=== PATIENT | female | born 1950 | race Caucasian/White ===

== ENCOUNTER 2024-05-15 13:24 | Outpatient (OUT) | payer MEDICARE, OTHER, SELFPAY ==
--- NOTE | 2024-05-14 09:33 | VEINCLINIC_ITS ---
Vital Signs 05/15/24 13:43 Height 5 ft 4 in Weight 64.41 kg BMI 24.4 BP 114/71 BP Location Left Brachial BP Position Sitting BP Cuff Size Adult BP Source Automatic Cuff Respiration 16 Pulse 77 Pulse Source Monitor Pulse Oximetry (%) 100 Oxygen Delivery Method Room Air Varicose Veins Patient is a 73 year old female in this day with c/o bilateral leg edema, achiness, and heaviness. 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 Patient has worn bilateral leg knee high compression stockings for 4months with some relief. Patient states that she noted increase swelling most notably to left leg since February. Patient has no history of varicose vein treatments, nor blood clots. Patient does have family history of varicose vein disease. Richmond Christensen MD personally performed the services described in this documentation, as scribed by James Peguero RN in my presence and it is both accurate and complete. James Christensen RN, am scribing for, and in the presence of, Dr. Richmond Palacios and in the presence of the patient. . thigh: bilateral (symptoms left > right leg), knee: bilateral, calf: bilateral, ankle: bilateral and burleson: bilateral aching, cramping and dull 3 >20 years Worsened in recent months: Yes standing compression stockings, weight loss and exercise Reports muscle spasms of leg, fatigue, heaviness, limb pain and edema History of lower extremity trauma: No Superficial thrombophlebitis: No Family history of varicose veins: yes Has patient had previous lower extremity venous surgery: No Does patient have a history of : yes Does patient intend to have future pregnancies: no Has patient had lower extremity venous scan with relux testing: No Support hose used: Yes Problems walking or doing physical activity: Yes How does it affect you: patient often has to rest and elevate legs Do you walk much: Yes Do you stand much: Yes Review of Systems ROS Narrative Richmond Christensen MD personally performed the services described in this doc umentation, as scribed by James Peguero RN in my presence and it is both accurate and complete. James Christensen RN, am scribing for, and in the presence of, Dr. Richmond Palacios and in the presence of the patient. Status of ROS 10 or more systems reviewed and unremark able except as noted in history and below Cardiovascular Reports: edema Neurological Reports: weakness in extremities PFSH [facility] Medical History (Updated 05/15/24 @ 13:59 by James Peguero) Plantar fascia syndrome ?M72.2 - Plantar fascial fibromatosis (ICD-10) Pain due to varicose veins of both lower extremities ?I83.813 - Varicose veins of bilateral lower extremities with pain (ICD-10) Surgical History (Updated 05/15/24 @ 13:59 by James Peguero) H/O: hysterectomy ?Z90.710 - Acquired absence of both cervix and uterus (ICD-10) H/O skin graft ?Z94.5 - Skin transplant status (ICD-10) Family History (Updated 05/15/24 @ 14:01 by James Peguero) Mother Bipolar 1 disorder Other Family history of CHF (congestive heart failure) Family history of cancer Family history of diabetes mellitus Family history of hypertension Family history of myocardial infarction Pain due to varicose veins of both lower extremities Social History (Updated 05/15/24 @ 14:01 by James Peguero) Within the past year, how often did you have a drink containing alcohol: never Score interpretation: A score less than 3 is consistent with normal alcohol consumption. Smoking status: Never smoker Non-prescribed substance use: denies use Meds Home Medications and Allergies Allergies Allergy/AdvReac Type Severity Reaction Status Date / Time No Known Drug Allergies Allergy Verified 05/15/24 14:02 Exam Narrative Exam Narrative: Richmond Christensen MD personally performed the services described in this documentation, as scribed by James Peguero RN in my presence and it is both accurate and complete. James Christensen RN, am scribing for, and in the presence of, Dr. Richmond Palacios and in the presence of the patient. Constitutional Documenting provider has reviewed patient's vital signs: yes Common normals: oriented x3 Nutritional appearance: overweight Lymph Lymphatic: no lymphedema noted Cardio Peripheral pulses: posterior tibial pulses present and dorsalis pedis pulses present Extremity Common normals: normal capillary refill General: calf tenderness and edema Right lower extremity: lower leg Right lower leg: inspection and palpation Left lower extremity: lower leg Left lower leg: inspection and palpation Neuro Common normals: oriented x3 Results Additional Findings Additional findings: Bilateral leg reflux u/s reveals bilateral leg great saphenous insufficiency with associated dilatation along with bilateral leg branch saphenous truncal varicosities. Richmond Christensen MD personally performed the services described in this documentation, as scribed by James Peguero RN in my presence and it is both accurate and complete. Jamse Christensen RN, am scribing for, and in the presence of, Dr. Richmond Palacios and in the presence of the patient. Assessment and Plan Assessment and Plan (1) Pain due to varicose veins of both lower extremities: Plan Patient to continue to use of bilateral leg compression stockings, exercise, rest, and elevation. Patient to return for EVLT of left GSV followed by right GSV followed by microfo am chemical ablation bilateral leg branch saphenous varicosities, and lastly, bilateral leg sclerotherapy pre-hemorrhagic reticular spider veins. Richmond Christensen MD personally performed the services described in this documentation, as scribed by James Peguero RN in my presence and it is both accurate and complete. James Christensen RN, am scribing for, and in the presence of, Dr. Richmond Palacios and in the presence of the patient.
--- NOTE | 2024-05-14 09:37 | W.VEIN ---
Discharge Plan Discharge Disposition: Home, Self-Care Outpatient Diagnostics: VC Endovenous Ablation 1VeinLT (Routine) Timeframe: 2 Weeks Facility: [facility] - Location: [facility]in Center Ordered By: Richmond Palacios Plan of Treatment: EVLT of left GSV Patient Instructions: Endovenous Ablation (GEN) Print Language: Khmer Discharge Date/Time: 05/15/24 15:17
--- NOTE | 2024-05-15 13:37 | VEIN_ITS ---
Patient Name: DARIEL YADAV MR#: [id number] : 1950 Exam Date: 05/15/2024 Ordering Doctor: DR ROCCO LOMELI M.D. RADIOLOGY REPORT PROCEDURE: VC EXT VENOUS REFLUX DARWIN LMTD COMPARISON: None. INDICATIONS: I83.813 Bilateral painful varicose veins TECHNIQUE: Duplex imaging of the lower extremity to assess the deep and superficial venous system for the presence of deep or superficial venous incompetence and to document the location and severity of disease. The study includes evaluation of the great saphenous vein (GSV), anterior accessory saphenous vein (AASV) and small saphenous vein (SSV). Patient scanned in reverse Trendelenburg and standing. FINDINGS: RIGHT LOWER EXTREMITY: Saphenofemoral Junction Reflux: Yes 8.2mm 1.9 sec GSV: Diam (mm) Reflux/ Time (sec) Proximal Thigh 5.9 Yes 2.2 Mid Thigh 4.9 Yes 1.7 Distal Thigh 2.8 No Prox Calf 2.7 No Mid Calf 2.4 Yes 0.8 Saphenopopliteal Junction Reflux: 3.7mm Yes 1.1 SSV: Proximal Calf 3.6 No Mid Calf 2.8 AASV: Proximal Thigh 3.5 No Mid Thigh 1.8 No Distal Thigh Thrombi: No acute or chronic thrombus visualized Compressibility: Normal Flow: Normal Preforator: Mid/med calf 3.6mm with 0s reflux. Tech Note: Incompetent GSV. Patent varicose vein prox/med calf 3.7mm with 2.7s reflux. Patent varicose vein medial knee 3.9mm with 3.1s reflux. Patent mid/med thigh 3.6mm with 1.4s reflux. LEFT LOWER EXTREMITY: Saphenofemoral Junction Reflux: Yes 6.2 mm 1.6 sec GSV: Diam (mm) Reflux/Time (sec) Proximal Thigh 5.7 Yes 2.2 Mid Thigh 4.9 Yes 1.8 Distal Thigh 5.0 Yes 0.8 Prox Calf 2.7 Yes 0.7 Mid Calf 2.4 Saphenopopliteal Junction Relux: 3.4 mm No SSV: Proximal Calf 1.9 Yes 0.5 Mid Calf 1.9 No AASV: Proximal Thigh 4.0 No Mid Thigh Distal Thigh Thrombi: No acute or chronic thrombus visualized Compressibility: Normal Flow: Normal Event Security Officer: Dist/med calf 3.2mm with 0s reflux. Tech Note: Incompetent GSV. Patent varicose vein prox/posterior 3.7mm with 0.9s reflux. Patent varicose vein mid/med calf 4.2mm with 2.9s reflux. Patent varicose vein dist/med thigh 3.0mm with 1.5s reflux. CONCLUSION: 1. Incompetent and abnormally dilated right and left great saphenous veins with associated branch saphenous varicosities. 2. Dictated by: Richmond Palacios M.D. on 05/15/2024 at 15:01 Approved by: Richmond Palacios M.D. on 05/15/2024 at 16:09
--- NOTE | 2024-05-15 13:37 | VEIN_ITS ---
Patient Name: DARIEL YADAV MR#: [id number] : 1950 Exam Date: 05/15/2024 Ordering Doctor: DR ROCCO LOMELI M.D. RADIOLOGY REPORT PROCEDURE: VC FACILITY EST [facility] - OFFICE VISIT INITIAL COMPARISON: None. PROGRESS NOTES: [age] year old female who presents with a 20 year history of dilated bulging veins, leg cramping, aching, increasing swelling. The patient's left leg symptoms are worse than the right. There has been a progression of symptoms over time. This increases with prolonged standing. The patient describes an improvement with rest and elevation. The patient denies any signs and symptoms to suggest arterial ischemia. The patient describes a family history of cardiac disease, hypertension, diabetes, cancer, varicose veins. The patient has drinking and smoking history of : None. Patient has a past medical history significant for : None pertinent. The patient denies a history of deep venous thrombus or pulmonary embolus. See separate history and physical for medication list. No prior treatment for varicose or spider veins. Current use of compression stockings. After review of nurse notes, history and physical exam I discussed at length the pathophysiology of venous hypertension and possible treatments, therapies and strategies available. We discussed at length the importance of elevating the lower extremities above the level of the heart, increased physical activity and compression stocking use. Ultrasound venous reflux study performed today was discussed at length with the patient. The report demonstrates incompetent and abnormally dilated right and left great saphenous veins with associated branch saphenous varicosities.. PHYSICAL EXAM: The right leg demonstrates several varicosities, numerous large reticular and spider veins, no ulceration, mild edema, no skin discoloration. The left leg demonstrates several varicosities, numerous large reticular and spider veins, no ulceration, moderate edema, no skin discoloration. Both thighs, legs and feet were symmetrically warm to the touch. Good posterior tibial and dorsalis pedis pulses were present bilaterally. VEIN/VC Facility EST Comprehensive IMPRESSION: 1. Bilateral lower extremity venous insufficiency 2. Bilateral lower extremity varicose veins 3. Left greater than right lower extremity subcutaneous edema 4. No flow significant arterial disease 5. CEAP: C3, EC, , [place] PLAN: 1. Continued use of compression stockings 2. Elevated legs and increased physical activity symptomatic relief 3. Endovenous laser ablation of left great saphenous and right great saphenous veins. 4. Microfoam chemical ablation of bilateral lower extremity incompetent branch saphenous varicosities. 5. Sclerotherapy of large reticular and spider veins within both lower extremities. Nurse notes, history and physical were reviewed and confirmed, see attached forms. The nurse was present throughout the physical exam and consultation Dictated by: Richmond Palacios M.D. on 05/15/2024 at 16:09 Approved by: Richmond Palacios M.D. on 05/15/2024 at 16:15
[2024-05-15 13:43] VITALS: BP 114/71; PULSE 77; O2SAT 100; BMI 24.4
== END 2024-05-15 15:17 | disposition home or self-care (01) ==
LOC: VC 13:24
PROVIDERS: PCP Radiology Diagnostic Radiology; Visit Provider Radiology Diagnostic Radiology
DX: I83.813 Varicose veins of bilateral lower extremities with pain (principal)
CPT/HCPCS: 93970; G0463

== ENCOUNTER 2024-05-25 10:14 | Outpatient (OUT) | payer MEDICARE, OTHER, SELFPAY ==
--- NOTE | 2024-05-24 09:35 | V.VEINS.HP ---
Vital Signs 05/25/24 10:24 BP 116/60 BP Location Left Brachial BP Position Sitting BP Cuff Size Adult BP Source Manual Cuff Respiration 16 Pulse 70 Pulse Source Monitor Pulse Oximetry (%) 98 Oxygen Delivery Method Room Air Varicose Veins Patient in this day for EVLT of Mohinder Christensen MD personally performed the services described in this documentation, as scribed by James Peguero RN in my presence and it is both accurate and complete. IJames RN, am scribing for, and in the presence of, Dr. Mohinder Velasco and in the presence of the patient. . thigh: bilateral (symptoms left > right leg), knee: bilateral, calf: bilateral, ankle: bilateral and burleson: bilateral aching, cramping and dull 3 >20 years Worsened in recent months: Yes standing compression stockings, weight loss and exercise Reports muscle spasms of leg, fatigue, heaviness, limb pain and edema History of lower extremity trauma: No Superficial thrombophlebitis: No Family history of varicose veins: yes Has patient had previous lower extremity venous surgery: No Does patient have a history of : yes Does patient intend to have future pregnancies: no Has patient had lower extremity venous scan with relux testing: No Support hose used: Yes Problems walking or doing physical activity: Yes How does it affect you: patient often has to rest and elevate legs Do you walk much: Yes Do you stand much: Yes Review of Systems ROS Narrative Mohinder Christensen MD personally performed the services described in this documentation, as scribed by James Peguero RN in my presence and it is both accurate and complete. IJames RN, am scribing for, and in the presence of, Dr. Mohinder Velasco and in the presence of the patient. Status of ROS 10 or more systems reviewed and unremarkable except as noted in history and below Cardiovascular Reports: edema Neurological Reports: weakness in extremities [facility] Medical History (Updated 05/15/24 @ 13:59 by James Peguero) Plantar fascia syndrome ?M72.2 - Plantar fascial fibromatosis (ICD-10) Pain due to varicose veins of both lower extremities ?I83.813 - Varicose veins of bilateral lower extremities with pain (ICD-10) Surgical History (Updated 05/25/24 @ 13:24 by James Peguero) Status post laser ablation of incompetent vein ?Z98.890 - Other specified postprocedural states (ICD-10) H/O: hysterectomy ?Z90.710 - Acquired absence of both cervix and uterus (ICD-10) H/O skin graft ?Z94.5 - Skin transplant status (ICD-10) Family History (Updated 05/15/24 @ 14:01 by James Peguero) Mother Bipolar 1 disorder Other Family history of CHF (congestive heart failure) Family history of cancer Family history of diabetes mellitus Family history of hypertension Family history of myocardial infarction Pain due to varicose veins of both lower extremities Social History (Updated 05/15/24 @ 14:01 by James Peguero) Within the past year, how often did you have a drink containing alcohol: never Score interpretation: A score less than 3 is consistent with normal alcohol consumption. Smoking status: Never smoker Non-prescribed substance use: denies use Meds Home Medications and Allergies Allergies Allergy/AdvReac Type Severity Reaction Status Date / Time No Known Drug Allergies Allergy Verified 05/15/24 14:02 Exam Narrative Exam Narrative: Mohinder Christensen MD personally performed the services described in this documentation, as scribed by James Peguero RN in my presence and it is both accurate and complete. James Christensen RN, am scribing for, and in the presence of, Dr. Mohinder Velasco and in the presence of the patient. Constitutional Documenting provider has reviewed patient's vital signs: yes Common normals: oriented x3 Nutritional appearance: overweight Lymph Lymphatic: no lymphedema noted Cardio Peripheral pulses: posterior tibial pulses present and dorsalis pedis pulses present Extremity Common normals: normal capillary refill General: calf tenderness and edema Right lower extremity: lower leg Right lower leg: inspection and palpation Left lower extremity: lower leg Left lower leg: inspection and palpation Neuro Common normals: oriented x3 Assessment and Plan Assessment and Plan (1) Pain due to varicose veins of both lower extremities: Plan f/u examination with physician along with left leg limited u/s Mohinder Christensen MD personally performed the services described in this documentation, as scribed by James Peguero RN in my presence and it is both accurate and complete. James Christensen RN, am scribing for, and in the presence of, Dr. Mohinder Velasco and in the presence of the patient. Procedures Procedure Instructions Procedures Plan of care: Risks and benefits of the procedure were discussed at length and informed written consent was obtained.? Time-out completed for verification of correct patient, procedure and site.? Staff present during time-out: James Peguero RN,? Mohinder Velasco MD, Michelle Jeter [facility] Time Out Time__1119 Patient prepped and procedure performed in usual sterile fashion. Risk of injury related to use of Diode laser and/or laser devices? __CR___ ? Serial number of laser used :? [id number] Control panel self test performed, electrical cords in good condition, floor is dry, basin of water available, fire extinguisher in close proximity_CR__ Polycarbonate goggles available and Laser warning signs outside of doors___CR__ Eye protection provided to patient and staff in room_CR___ Use of laser retardant drapes and dull blackened instruments as directed__CR___ Use of nonflammable prep solutions and use of saline soaked sponges to protect tissues as indicated _CR___ Length __47 cm Laser operated by __Dr. Velasco Physician verbal confirmation laser locked in place__CR__ Laser start time (date and time) __05/25/2024@_1132 Laser stop time(date and time) __05/25/2024@_1137 He _8.0___ Average laser use __2264 Joules Average laser use___283 seconds Pulse continuous ___CR_? Pulse intermittent ___ Amount of Tumescent used _325cc Evaluated patient for signs and symptoms of electrical injury __CR___ ? Skin clear at insertion site __CR___ Patient tolerated procedure well.? Left leg Coban dressing applied to access site.? Applied Left thigh high leg compression stocking. Will return on 06/01/2024 for Left leg limited venous ultrasound and exam. I, Mohinder Velasco MD personally performed the services described in this documentation, as scribed by James Peguero RN in my presence and it is both accurate and complete. I, James Peguero RN, am scribing for, and in the presence of, Dr. Mohinder eVlasco and in the presence of the patient.
--- NOTE | 2024-05-24 09:38 | P.DS_ITS ---
Discharge Plan Discharge Disposition: Home, Self-Care Outpatient Diagnostics: VC Facility EST LMTD (Routine) Timeframe: 2 Weeks Facility: [facility] - Location: Vein Center Ordered By: Mohinder Velasco VC EXT Venous LT Limited (Routine) Timeframe: 2 Weeks Facility: [facility] - Location: Vein Center Ordered By: Mohinder Velasco Follow Up Appointments: 06/01/2024 Plan of Treatment: f/u examination with physician along with left leg limited u/s Patient Instructions: Endovenous Ablation (DC) Print Language: Lebanese Discharge Date/Time: 05/25/24 11:33
--- NOTE | 2024-05-25 10:15 | VEIN_ITS ---
[address] [address] Patient Name: DARIEL YADAV MRN: [id number] date: 1950 Sex: F Assigned Patient Location: Current Patient Location: Accession/Order Number: [id number] Exam Date: 05/25/2024 10:23 Report Date: 05/25/2024 12:34 At the request of: WOOD VALIENTE Procedure: VC Endovenous Ablation 1VeinLT EXAMINATION: VC Endovenous Ablation 1VeinLT HISTORY: I83.813 - Varicose veins of bilateral lower extremities w... COMPARISON: No relevant comparison available. TECHNIQUE: The risks and benefits of the procedure had been previously discussed, and were rediscussed at length. Informed written consent was obtained. Michelle Day and James Peguero assisted. Time out procedure was performed. The left lower extremity was prepared and draped in the usual sterile fashion to allow knee flexion in the sterile field. Duplex ultrasound probe was draped in a sterile cover, sterile transmission gel was used. Venous mapping was performed with the areas of dilation and large tributaries marked. The total length was 47 cm from the entry lower calf to 3 cm below the saphenofemoral junction. The diameter of the greater saphenous vein ranged from 5-6 mm. A 30 gauge needle and 1% buffered lidocaine was used to anesthetize the entry site. A 4 mm incision was made with a scalpel and the saphenous vein was entered percutaneously under direct ultrasound guidance with a micropuncture set, a single stick was successful in gaining access. A micro-guide wire was inserted and the needle removed. A micro-set including a dilator was inserted over the microwire and the needle and dilator were removed. A 0.018 guide wire was inserted through the micro-set and threaded through the saphenous vein to the saphenofemoral junction. The dilator was removed and an introducer sheath was inserted over the wire until the end of the sheath entered the saphenofemoral junction. The dilator and wire were removed and the 600 micron fiber was introduced and placed and positioned so that it extended beyond the sheath and was 3 cm peripheral to the saphenofemoral femoral junction. Final position of the fiber was determined by ultrasound guidance and duplex imaging. Tumescent anesthetic was delivered by ultrasound guidance. 325 cc of fluid was delivered along the entire course of the saphenous vein. The solution consisted of 1000 cc of normal saline with 40 mL of 1% lidocaine and 20 mL of sodium bicarbonate. A final positioning check was made. The energy source was turned on by means of the foot pedal and the fiber and sheath were withdrawn. The total number of Joules delivered was 2264. The laser was active for 283seconds under continuous pulse, average laser use of 8 J. Laser start time 11:32 AM 05/25/2024 . Laser stop time 11:37 AM 05/25/2024 . A duplex ultrasound revealed compressibility and flow at the saphenofemoral junction immediately after the procedure. Hemostasis at the access site was achieved. The skin incision of the saphenous vein was closed with a 4 x 4. A compression stocking was applied. Postop instructions were given. A follow up appointment was recommended and scheduled. The patient tolerated the procedure well and was discharged in good condition . VEIN/VC Endovenous Ablation 1VeinLT IMPRESSION: Technically successful endovenous laser ablation of the left great saphenous vein Electronically authenticated by: ROCCO LOMELI Date: 05/25/2024 12:34
[2024-05-25] MEDS: LIDOCAINE HCL 1% 100 MG/10 ML MDV INJ (10:16)
[2024-05-25] MEDS: 0.9 % SODIUM CHLORIDE 500 ML, LIDOCAINE HCL 20 ML, SODIUM BICARBONATE 10 MEQ INJ (10:17)
--- OUTSIDE RECORDS SUMMARY | 2024-05-25 10:17 | XMS_ITS | CCD ---
Author Organization [facility] Informat ion Partnership [facility] Care Team Providers Care Pediatric Clinical Nurse Specialist Name Role Phone Ady Troy Monet Primary Care Provider Schaeffer IMPORT DISPATCHER - STOCK SHIPPER, Krystin Zohreh Primary Care Pr ovider Schaeffer IMPORT DISPATCHER - STOCK SHIPPER, Krystin Zohreh Primary Care Pr ovider Schaeffer IMPORT DISPATCHER - STOCK SHIPPER, Krystin Zohreh Primary Care Pr ovider Briana RAMIREZ, Ty Skelton Primary Care Unavaila alexandra Broussard MD, Rio Cm Attending Unavailable Thierno RAMIREZ, Shree Moise Attending Unavailable Thierno RAMIREZ, Shree Moise Primary Care Unavailable Schaeffer IMPORT DISPATCHER - STOCK SHIPPER, Krystin Zohreh Primary Care Pr ovider JOCELYN SARAH Referring Unavailable SCHAEFFER, KRYSTIN ZOHREH Primary Care Unavailabl e JOCELYN SARAH Referring Unavailable SCHAEFFER, KRYSTIN ZOHREH Primary Care Unavailabl e SCHAEFFER, KRYSTIN ZOHREH Referring Unavailabl e SCHAEFFER, KRYSTIN ZOHREH Primary Care Unavailabl e SCHAEFFER, KRYSTIN ZOHREH Primary Care Unavailabl QAMAR Paul Attending Unavailable HANNAH KRYSTIN ZOHREH Referring Unavailabl e SCHAEFFER, KRYSTIN ZOHREH Primary Care Unavailabl e SCAHEFFER, KRYSTIN ZOHREH Referring Unavailabl e SCHAEFFER, KRYSTIN ZOHREH Primary Care Unavailabl e SCHAEFFER, KRYSTIN ZOHREH Referring Unavailabl e SCHAEFFER, KRYSTIN ZOHREH Primary Care Unavailabl e SCHAEFFER, KRYSTIN ZOHREH Referring Unavailabl e SCHAEFFER, KRYSTIN ZOHREH Primary Care Unavailabl e JOCELYN SARAH Referring Unavailable SCHAEFFER, KRYSTIN ZOHREH Primary Care Unavailabl e Allergies Allergy Classification Reported Allergen(s) Allergy Type Date of Onset Reaction(s) Facility (1 source) No Known Medication Allergies; Translations: [No Known Medication Allergies] Propensity to adverse reactions to drug (disorder) [facility] Repository Medications Current Medications Medication Drug Class(es) Dates Sig (Normalized) Sig (Original) aspirin 81 mg oral tablet (10 sources) Platelet Aggregation Inhibitor, Nonsteroidal Anti-inflammatory Drug take 1 tablet by mouth once daily aspirin 81 MG tablet Take 1 tablet by mouth daily Active Charcoal Activated (CHARCOCAPS PO) (2 sources) Charcoal Activat ed (CHARCOCAPS PO) Take by mouth Active Charcoal Activat ed (CHARCOCAPS PO) Take by mouth 0 Active cholecalciferol 0.05 mg oral capsule (10 sources) Vitamin D Cholecalciferol (VITAMIN D3) 2000 UNITS CAPS Take 1,000 Units by mouth daily. Active Chondroitin Sulfates / Glucosamine (4 sources) Glucosamine-Jere droitin (GLUCOSAMINE CHONDR COMPLEX PO) Take by mouth. 0 Active fluticasone propionate 0.05 mg/actuat metered dose nasal spray (3 sources) Corticosteroid Start: 10-12-19 23 take 1 spray(s) nasal route in the morning fluticasone (FLONASE) 50 MCG/ACT nasal spray 1 spray by Each Nostril route in the morning and 1 spray in the evening. 32 g 1 10/11/2022 Active Magnesium (5 sources) take 1 tablet by mouth once daily magnesium (MAGNESIUM-OXIDE) 250 MG TABS tablet Take 1 tablet by mouth daily Active take 1 tablet by mouth once tami y magnesium (MAGNESIUM-OXIDE) 250 MG TABS tablet Take 1 tablet by mouth daily 0 Active Multiple Vitamins-Minerals ( EYE VITAMINS PO) (4 sources) Multiple Vitamin s-Minerals (EYE VITAMINS PO) Take by mouth 0 Active Multiple Vitamins-Minerals ( ICAPS MV PO) (5 sources) Multiple Vitamin s-Minerals (ICAPS MV PO) Take by mouth. 0 Active Multiple Vitamins-Minerals ( PRESERVISION AREDS 2+MULTI VIT PO) (5 sources) Multiple Vitamin s-Minerals (PRESERVISION AREDS 2+MULTI VIT PO) Take by mouth Active Multiple Vitamin s-Minerals (PRESERVISION AREDS 2+MULTI VIT PO) Take by mouth 0 Active nitrofurantoin, macrocrystals 25 mg / nitrofurantoin, monohydrate 75 mg oral capsule (2 sources) Nitrofuran Antibacterial Start: 03-24-2024 End: 03-29-2024 take 1 capsule by mouth twice daily nitrofurantoin, macrocrystal-monohydrate, (MACROBID) 100 MG capsule Take 1 capsule by mouth 2 times daily for 5 days 10 capsule 03/24/2024 03/29/2024 Active Start: 01-06-2023 End: 01-16-2023 take 1 capsule by mouth twice daily nitrofurantoin, macrocrystal-monohydrate , (MACROBID) 100 MG capsule Take 1 capsule by mouth 2 times daily for 10 days 20 capsule 0 01/06/2023 01/16/2023 Active omeprazole 20 mg delayed release oral capsule (1 source) Proton Pump Inhibitor Start: 12-16-2023 take 1 capsule by mouth in the morning omeprazole (PRILOSEC) 20 MG delayed release capsule Indications: Bacterial infection due to Helicobacter pylori Take 1 capsule by mouth in the morning and 1 capsule in the evening. Do all this for 14 days. 28 capsule 12/16/2023 Active phenazopyridine hydrochloride 100 mg oral tablet (2 sources) Start: 03-24-2024 End: 03-26-2024 take 1 tablet by mouth three times daily as needed for pain phenazopyridine (PYRIDIUM) 100 MG tablet Take 1 tablet by mouth 3 times daily as needed for Pain 6 tablet 03/24/2024 03/26/2024 Active Start: 01-06-2023 End: 01-11-2023 take 1 tablet by mouth three times daily as needed for pain phenazopyridine (PYRIDIUM) 100 MG tablet Indications: Burning with urination Take 1 tablet by mouth 3 times daily as needed for Pain 15 tablet 0 01/06/2023 01/11/2023 Active predniSONE 10 mg oral tablet (1 source) Start: 03-13-2024 predniSONE (DELTASONE) 10 MG tablet TAKE 4 TABS DAILY FOR 3 DAYS, THEN TAKE 3 TABS DAILY FOR 3 DAYS, THEN TAKE 2 TABS DAILY FOR 3 DAYS, THEN TAKE 1 TAB DAILY FOR 3 DAYS WITH FOOD 30 tablet 03/13/2024 Active sertraline 50 mg oral tablet (4 sources) Serotonin Reuptake Inhibitor Start: 08-13-2015 take 1 tablet by mouth once daily sertraline (ZOLOFT) 50 MG tablet Take 1 tablet by mouth daily 30 tablet 5 08/13/[address] Bob Wort 150 MG CAPS (2 sources) St Bob Wort 15 0 MG CAPS Take by mouth Active St Bob Wort 15 0 MG CAPS Take by mouth 0 Active lowell's wort extract 300 mg oral capsule (4 sources) take 1 capsule by mouth once daily St Bob Wort 300 MG CAPS Take 1 capsule by mouth daily 0 Active vitamin b12 2.5 mg oral lozenge (6 sources) Vitamin B12 Cyanocobalamin ( B-12) [address] 1 tablet under the tongue daily Active Zinc-Vitamin C 15-60 MG TBDP (6 sources) take 1 tablet by mouth once daily Zinc-Vitamin C 15-60 MG TBDP Take 1 tablet by mouth daily Active take 1 tablet by mouth once tami y Zinc-Vitamin C 15-60 MG TBDP Take 1 tablet by mouth daily 0 Active Problems Active Problems Problem Classification Problem Date Documented Da te Episodic/Chronic Immunizations and screening for infectious disease (1 source) Contact with and (suspected) exposure to other viral communicable diseases; Translations: [Exposure to COVID-19 virus] Episodic Malaise and fatigue (1 source) Fatigue; Translations: [Fatigue, unspecified type] Episodic Mood disorders (10 sources) Depressive disorder; Translations: [Major depressive disorder, single episode, unspecified] 05-16-2015 Chronic Osteoarthritis (10 sources) Osteoarthritis; Translations: [Unspecified osteoarthritis, unspecified site] 05-08-2015 Chronic Other connective tissue disease (3 sources) Other specified soft tissue disorders; Translations: [Other specified soft tissue disorders] Onset: 03-07-2024 Episodic Other gastrointestinal disorders (1 source) Flatulence, eructation and gas pain; Translations: [Flatulence] 12-13-2023 Episodic Other screening for suspected conditions (not mental disorders or infectious disease) (10 sources) Breast neoplasm screening status; Translations: [Patient encounter status] Onset: 09-17-2013 Resolved: 06-05-2018 Episodic Residual codes; unclassified (1 source) Menopause present; Translations: [Asymptomatic menopausal state] Episodic Urinary tract infections (3 sources) Urinary tract infectious disease; Translations: [Acute cystitis] Onset: 03-24-2024 03-24-2024 Episodic Past or Other Problems Problem Classification Problem Date Documented Da te Episodic/Chronic Other gastrointestinal disorders (1 source) Flatulence; Translations: [Flatulence] Onset: 12-13-2023 Episodic Other gastrointestinal disorders (1 source) Gas pain; Translations: [Gas pain] Onset: 12-13-2023 Episodic Other gastrointestinal disorders (1 source) Eructation; Translations: [Eructation] Onset: 12-13-2023 Episodic Unclassified (5 sources) Patient encounter status; Translations: [Screening for hyperlipidemia] Onset: 09-17-2013 Resolved: 06-05-2018 06-05-2018 Unclassified (4 sources) Onset: 10-11-2022 Resolved: 10-11-2022 10-11-2022 Results Test Name Value Interpretation Reference Range Facility Cult,Urineon 03-26-2024 Cult,Urine Specimen Description .CLEAN CATCH URINE Special Requests Site: Urine Culture ESCHERICHIA COLI >100,000 CFU/ML Report Status FINAL 03/26/2024 SUSCEPTIBILITY Organism ESCHERICHIA COLI Method PILO Ampicillin 8 SUSCEPTIBLE Cefazolin <=4 SUSCEPTIBLE Cefazolin sensitivity results can be used to predict the effectiveness of oral cephalosporins (eg. Cephalexin) in uncomplicated Urinary Tract Infections due to E. coli, K. pneumoniae, and P. mirabilis Ceftriaxone <=0.25 SUSCEPTIBLE ESBL NEGATIVE Gentamicin <=1 SUSCEPTIBLE Levofloxacin <=0.12 SUSCEPTIBLE Nitrofurantoin <=16 SUSCEPTIBLE Piperacillin/Tazobac michelle <=4 SUSCEPTIBLE Tobramycin <=1 SUSCEPTIBLE Trimethoprim/Sulfa <=20 SUSCEPTIBLE Susceptible [facility] Comment on above: Performed By: #### U RC #### [address] [id number] Rock Splitter: Maurisio Boone MD [facility] [address] [place] [address] [place] [address] Rock Splitter: Mohinder Thomas MD Urinalysis w/ Microon 2023 Bacteria 2+ Abnormal NONE [facility] Comment on above: Performed By: #### U AMIC #### [facility] [address] [place] [address] Rock Splitter: Mohinder Thomas MD Bilirubin, SemiQt,Ur Negative Normal NEG [facility] Comment on above: Performed By: #### U AMIC #### [facility] [address] [place], [place] [id number] Rock Splitter: Mohinder Thomas MD Blood, Urine 2+ Abnormal NEG [facility] Comment on above: Performed By: #### U AMIC #### [facility] [address] [place], [place] [id number] Rock Splitter: Mohinder Thomas MD Clarity (U) Clear Normal CLEAR [facility] Comment on above: Performed By: #### U AMIC #### [facility] [address] [place] [address] Dr. [place], [place] [id number] Rock Splitter: Mohinder Thomas MD Color (U) Yellow Normal YEL [facility] Comment on above: Performed By: #### U AMIC #### [facility] [address] [place] [address] Dr. [place], [place] [id number] Rock Splitter: Mohinder Thomas MD Epithelial cells LM Ql (Urine sed) 0 TO 2 Normal 0-25 [facility] Comment on above: Performed By: #### U AMIC #### [facility] [address] [place] [address] Dr. [place], [place] [id number] Rock Splitter: Mohinder Thomas MD Glucose Ql (U) Negative Normal NEG [facility] Comment on above: Performed By: #### U AMIC #### [facility] [address] [place] [address] Dr. [place], [place] [id number] Rock Splitter: Mohinder Thomas MD Ketones Ql (U) Negative Normal NEG [facility] Comment on above: Performed By: #### U AMIC #### [facility] [address] [place] [address] Dr. [place], [place] [id number] Rock Splitter: Mohinder Thomas MD Leukocyte esterase Test strip Ql (U) LARGE Abnormal NEG [facility] Comment on above: Performed By: #### U AMIC #### [facility] [address] [place] [address] Dr. [place] [id number] Rock Splitter: Mohinder Thomas MD Nitrite,Ur Negative Normal NEG [facility] Comment on above: Performed By: #### U AMIC #### [facility] [address] [place], [place] 1920383 Rock Splitter: Mohinder Thomas MD PH,Ur 6.5 Normal 5.0-9.0 [facility] Comment on above: Performed By: #### U AMIC #### [facility] [address] [place], [place] [id number] Rock Splitter: Mohinder Thomas MD Protein Ql (U) Negative Normal NEG [facility] Comment on above: Performed By: #### U AMIC #### [facility] [address] [place], [facility] Rock Splitter: Mohinder Thomas MD Spec. [place],Ur <1.005 Low 1.010-1.020 [facility] Comment on above: Performed By: #### U AMIC #### [facility] [address] [place], [place] [id number] Rock Splitter: Mohinder Thomas MD Urine RBC's 2 TO 5 Normal 0-2 [facility] Comment on above: Performed By: #### U AMIC #### [facility] [address] [place], [place] [id number] Rock Splitter: Mohinder Thomas MD Urine WBC's 50 TO 100 Normal 0-5 [facility] Comment on above: Performed By: #### U AMIC #### [facility] [address] [place], [place] [id number] Rock Splitter: Mohinder Thomas MD Urobilinogen,Ur Normal Normal 0.0-1.0 [facility] Comment on above: Performed By: #### U AMIC #### [facility] [address] [place], [place] [id number] Rock Splitter: Mohinder Thomas MD Urinalysis with Microscopico n 03-24-2024 Bacteria LM Ql (Urine sed) 2+ Abnormal None [facility] Bilirubin Ql (U) Negative NEGATIVE [facility] Clarity (U) Clear Clear [facility] Color (U) Yellow Yellow [facility] Epithelial cells LM.HPF (Urine sed) [#/Area] 0 TO 2 [facility] Glucose Test strip (U) [Mass/Vol] Negative NEGATIVE mg/dL [facility] Hemoglobin Auto test strip Ql (U) 2+ Abnormal NEGATIVE [facility] Interpretation and review of laboratory results Abnormal [facility] Ketones (U) [Mass/Vol] Negative NEGATIVE mg/dL [facility] Leukocyte esterase Test strip Ql (U) LARGE Abnormal NEGATIVE [facility] Nitrite Ql (U) Negative NEGATIVE [facility] pH (U) 6.5 [pH] 5.0 - 9.0 [facility] Protein (U) [Mass/Vol] Negative NEGATIVE mg/dL [facility] RBC LM.HPF (Urine sed) [#/Area] 2 TO 5 [facility] Specific gravity (U) [Rel density] Low 1.010 - 1.020 [facility] Urobilinogen Qn (U) Normal 0.0 - 1. 0 EU/dL [facility] WBC LM.HPF (Urine sed) [#/Area] 50 TO 100 [facility] XR ANKLE LEFT (MIN 3 VIEWS)o n 03-10-2024 XR ANKLE LEFT (MIN 3 VIEWS) EXAMINATION: THREE XRAY VIEWS OF THE LEFT ANKLE; TWO XRAY VIEWS OF THE LEFT FOOT 03/07/2024 11:06 am COMPARISON: None. HISTORY: ORDERING SYSTEM PROVIDED HISTORY: Left leg swelling TECHNOLOGIST PROVIDED HISTORY: left foot swelling 73-year-old female with left leg swelling FINDINGS: Left ankle: Ankle mortise is intact. Osseous alignment is normal. Joint spaces are well maintained. No acute fracture or gross dislocation is evident. Moderate soft tissue swelling at the lateral ankle. Mild soft tissue edema of the left leg. Mild plantar calcaneal spur. Scattered soft tissue calcifications. Moderate soft tissue swelling of the anterior ankle. Boehler's angle is maintained. Left foot: Osseous alignment is normal. Joint spaces are well maintained. No marginal erosions are identified. No acute fracture or gross dislocation is seen. Mild plantar calcaneal spur. The medial and middle cuneiforms demonstrate proper alignment with the base of the 1st and 2nd metatarsals respectively. No tibiotalar joint effusion is seen. Boehler's angle is maintained. Mild soft tissue swelling at the dorsal foot. IMPRESSION: Left ankle: 1. Moderate soft tissue swelling of the lateral and anterior ankle. Mild soft tissue edema of the left leg. Mild plantar calcaneal spur. 2. No acute fracture or dislocation. Left foot: 1. Mild soft tissue swelling of the dorsal foot. 2. Mild plantar calcaneal spur. 3. No acute fracture or dislocation. Interpreted by: Perez Bowen MD Signed by: Perez Bowen MD 03/10/24 Final result Normal [facility] XR FOOT LEFT (2 VIEWS)on XR FOOT LEFT (2 VIEWS) EXAMINATION: THREE XRAY VIEWS OF THE LEFT ANKLE; TWO XRAY VIEWS OF THE LEFT FOOT 03/07/2024 11:06 am COMPARISON: None. HISTORY: ORDERING SYSTEM PROVIDED HISTORY: Left leg swelling TECHNOLOGIST PROVIDED HISTORY: left foot swelling 73-year-old female with left leg swelling FINDINGS: Left ankle: Ankle mortise is intact. Osseous alignment is normal. Joint spaces are well maintained. No acute fracture or gross dislocation is evident. Moderate soft tissue swelling at the lateral ankle. Mild soft tissue edema of the left leg. Mild plantar calcaneal spur. Scattered soft tissue calcifications. Moderate soft tissue swelling of the anterior ankle. Boehler's angle is maintained. Left foot: Osseous alignment is normal. Joint spaces are well maintained. No marginal erosions are identified. No acute fracture or gross dislocation is seen. Mild plantar calcaneal spur. The medial and middle cuneiforms demonstrate proper alignment with the base of the 1st and 2nd metatarsals respectively. No tibiotalar joint effusion is seen. Boehler's angle is maintained. Mild soft tissue swelling at the dorsal foot. IMPRESSION: Left ankle: 1. Moderate soft tissue swelling of the lateral and anterior ankle. Mild soft tissue edema of the left leg. Mild plantar calcaneal spur. 2. No acute fracture or dislocation. Left foot: 1. Mild soft tissue swelling of the dorsal foot. 2. Mild plantar calcaneal spur. 3. No acute fracture or dislocation. Interpreted by: Perez Bowen MD Signed by: Perez Bowen MD 03/10/24 Final result Normal [facility] Gastroenterology Consultatio non 02-08-2024 Gastroenterology Consultation This is a 73-year-old woman who presented to the endoscopy unit for colorectal cancer screening. Denies any nausea, vomiting, odynophagia/dysphagi a, early satiety, unintentional weight loss, hematemesis, melena or hematochezia. Regular bowel movements. Review of Systems Constitutional : No weight loss, fever, chills, weakness or fatigue. HEENT: Eyes: No visual loss, blurred vision, double vision or yellow sclerae. Ears, Nose, Throat: No hearing loss, sneezing, congestion, runny nose or sore throat. Skin: No rash or itching. Cardiovascular: No chest pain, chest pressure or chest discomfort. No palpitations or edema. Respiratory: No shortness of breath, cough or sputum. Neurological: No headache, dizziness, syncope, paralysis, ataxia, numbness or tingling in the extremities. No change in bowel or bladder control. Musculoskeletal : No muscle, back pain, joint pain or stiffness. Psychiatric: Cooperative, appropriate mood and affect. Physical Examination Patient is hemodynamically stable and afebrile. HEENT: PERRLA, no scleral icterus Skin: no rashes noted Lungs: CTA B/L Cardiovascular system: S1,S2 heard ,Normal rate and rhythm, no rub Abdomen: Soft, no tenderness+, Bowels sounds+ MORTGAGE OR LOAN UNDERWRITER: no focal deficits Recommendations: Will schedule screening colonoscopy .The alternatives , benefits; risks and complications which include but are not limited to bleeding, perforation, infection, missing a lesion and complications of anesthesia explained to the patient . Patient understood and consented for procedure. Electronically signed by Bobo RAMIREZ, Rio Cm 02/08/24 09:22 EDT Normal [facility] Operative Reporton Operative Report Missing Attachment - attachment storage system not supported [id number] Can be viewed in source system Missing Attachment - attachment storage system not supported [id number] Can be viewed in source system Missing Attachment - attachment storage system not supported [id number] Can be viewed in source system Missing Attachment - attachment storage system not supported [id number] Can be viewed in source system Missing Attachment - attachment storage system not supported [id number] Can be viewed in source system Missing Attachment - attachment storage system not supported [id number] Can be viewed in source system Missing Attachment - attachment storage system not supported [id number] Can be viewed in source system Missing Attachment - attachment storage system not supported [id number] Can be viewed in source system Missing Attachment - attachment storage system not supported [id number] Can be viewed in source system Missing Attachment - attachment storage system not supported [id number] Can be viewed in source system Missing Attachment - attachment storage system not supported [id number] Can be viewed in source system Missing Attachment - attachment storage system not supported [id number] Can be viewed in source system Missing Attachment - attachment storage system not supported [id number] Can be viewed in source system Patient: Dariel Maguire Age: 73 years Sex: Female : 1950 Associated Diagnoses: Internal hemorrhoids Author: Bobo RAMIREZ, Rio Cm Pre-Procedure Procedure Date: 02/08/2024 . Procedure Type: Colonoscopy. Procedure provider: Performed by Bobo RAMIREZ, Rio Cm. Current history and physical: Documented on chart, Allergies (1) Active Reaction No Known Medication Allergies None Documented , Medications (2) Active Scheduled: (0) Continuous: (1) Sodium Chloride 0.9% 1,000 mL 1,000 mL, IV, 15 mL/hr PRN: (1) sodium chloride 0.9% Inj Soln 10 mL Flush 10 mL, IV Push, As Indicated . Family History: No family history items have been selected or recorded.. Social History: Social & Psychosocial Habits Alcohol 02/02/2024 Use: Never Substance Abuse 02/02/2024 Use: Denies All Tobacco 02/08/2024 Use: Never (less than 100 in l . Procedure History: H/O: hysterectomy ([id number]). Foot ([id number]). Comments: 02/02/2024 13:49 [facility][id number]).. Problem History: All Problems Arthritis / [id number] / Confirmed Family history of colon cancer in father / [id number] / Confirmed Hx of osteoarthritis / [id number] / Confirmed. Informed Consent: After discussing the rationale, risks and benefits, and alternatives to this procedure, the patient provided signed consent for the procedure. Indication: Screening. Medications: (Selected) Inpatient Medications Ordered NS 1,000 mL: 15 mL/hr, IV Normal Saline Flush 0.9% injectable solution: 10 mL, IV Push, As Indicated, PRN: flush Prescriptions Prescribed GoLYTELY oral powder for reconstitution: See Instructions, used as directed by office for bowel prep, 1 EA, 0 Refill(s) Documented Medications Documented PreserVision: 0 Refill(s) Probiotic Formula (Bacillus Coagulans): Oral, Daily, 0 Refill(s) Lowell's wort: 0 Refill(s) Vitamin C 500 mg oral tablet: tabs, Oral, Daily, 0 Refill(s) Vitamin D3 50 mcg (2000 intl units) oral tablet, chewable: 1 tabs, Oral, Daily, 30 EA, 0 Refill(s) aspirin 81 mg oral capsule: caps, Oral, q24hr, 0 Refill(s) magnesium oxide 250 mg oral tablet: tabs, Oral, Daily, 0 Refill(s). ASA Classification: Class II. Monitoring: See anesthesia record. Procedure Location: Endo Suite. See anesthesia record for sedation given during procedure. Rectal exam was performed and was normal. The patient was positioned starting in the left lateral decubitus position. Endoscope type used was an adult-size, colonoscope. The endoscope was introduced through the anus. The scope was advanced to the cecum verified by visualization of the appendiceal orifice, verified by visualization of the ileocecal valve. No difficulties encountered during the procedure. The bowel was carefully examined as the scope was withdrawn 7 minutes after visualizing the cecum. Bowel prep quality was BBPS score of 6 The patient tolerated the procedure well. Findings Nonbleeding small internal hemorrhoids were found on retroflexion. Images Procedure images: [id number].jpg COLON_0002.jpg COLON_0003.jpg COLON_0004.jpg COLON_0005.jpg COLON_0006.jpg COLON_0007.jpg COLON_0008.jpg COLON_0009.jpg (Inserted Image. Unable to displa (more content not included)... Normal [facility] Comment on above: Order Comment: Elizabet ng Attachment - attachment storage system not supported [id number] Can be viewed in source system Missing Attachment - attachment storage system not supported [id number] Can be viewed in source system Missing Attachment - attachment storage system not supported [id number] Can be viewed in source system Missing Attachment - attachment storage system not supported [id number] Can be viewed in source system Missing Attachment - attachment storage system not supported [id number] Can be viewed in source system Missing Attachment - attachment storage system not supported [id number] Can be viewed in source system Missing Attachment - attachment storage system not supported [id number] Can be viewed in source system Missing Attachment - attachment storage system not supported [id number] Can be viewed in source system Missing Attachment - attachment storage system not supported [id number] Can be viewed in source system Missing Attachment - attachment storage system not supported [id number] Can be viewed in source system Missing Attachment - attachment storage system not supported [id number] Can be viewed in source system Missing Attachment - attachment storage system not supported [id number] Can be viewed in source system Missing Attachment - attachment storage system not supported [id number] Can be viewed in source system Provider Letteron 02-08-2024 Provider Letter [place] [id number] Re: Dariel Maguire Date of Visit: 02/08/2024 Dear Ty [place], Attached you will find the office visit and/or procedure documentation for Dariel Maguire. Let me know if you have any questions or concerns. Sincerely, Lina Fuentes RN C C Providers: The following document(s) were included in the letter: February 08, 2024 10:22:00 EDT - (02/08/2024) Colonoscopy Procedure Note Normal [facility] BOLA DIGITAL DIAGNOSTIC UNILATERAL LEFTon 01-09-2024 [facility] BOLA DIGITAL DIAGNOSTIC UNILATERAL LEFT EXAMINATION: DIAGNOSTIC DIGITAL LEFT BREAST MAMMOGRAM WITH TOMOSYNTHESIS, 01/09/2024 9:39 am TECHNIQUE: Diagnostic mammography of the left breast was performed with tomosynthesis. 2D standard and 3D tomosynthesis combination imaging performed through the left breast. Computer aided detection was utilized in the interpretation of this exam. Views: COMPARISON: February 14, 2023 and February 22, 2023 HISTORY: ORDERING SYSTEM PROVIDED HISTORY: Abnormal mammogram of left breast FINDINGS: Left breast is composed of heterogeneously dense fibroglandular tissue. No change to scattered calcifications left breast. No suspicious findings. No dominant mass or architectural distortion. IMPRESSION: Stable exam. No mammographic evidence of malignancy BIRADS: BIRADS - CATEGORY 2 Benign Findings. Normal interval follow-up is recommended in 12 months. OVERALL ASSESSMENT - BENIGN A letter of notification will be sent to the patient regarding the results. The [employer] recommends annual mammograms for women 40 years and older. Interpreted by: Matti Olivera DO Signed by: Matti Olivera DO 01/09/24 Final result Normal [facility] Celiac Disease Panelon 12-14 Gliadin Deam Pep IgA 0.6 U/mL Normal <7.0 [facility] Comment on above: Result Comment: CELIAC INTERPRETATION <7.0 Negative 7.0-10.0 Equivocal >10.0 Positive units: U/mL Performed By: #### C ELP #### [facility] [employer] [address] [place] [id number] [employer]itter: Maurisio Boone MD Tiss Transglutam IgA <0.1 Normal <7.0 [facility] Comment on above: Result Comment: CELIAC INTERPRETATION <7.0 Negative 7.0-10.0 Equivocal >10.0 Positive units: U/mL Performed By: #### C ELP #### [facility] [employer] [address] [place] [id number] [employer]: Maurisio Boone MD Gliadin Deam Pep IgG 0.6 U/mL Normal <7.0 [facility] Comment on above: Result Comment: CELIAC INTERPRETATION <7.0 Negative 7.0-10.0 Equivocal >10.0 Positive units: U/mL Performed By: #### C ELP #### [facility] [address] [place] [address] [employer]itter: Maurisio Boone MD H. pylori Antigenon 12-15-19 24 H. pylori Antigen Specimen Description .FECES Direct Exam POSITIVE Report Status FINAL 12/15/2023 Abnormal [facility] Comment on above: Performed By: #### F HPY #### [facility] [address] [place] [address] [employer]: Maurisio Boone MD [facility] [address] [place] [address] [employer] Splitter: Mohinder Thomas MD Celiac Disease Panelon 12-12 IgA [Mass/Vol] 65 mg/dL Low 70-400 [facility] Comment on above: Performed By: #### C ELP #### [facility] [address] [place] [address] [employer]itter: Maurisio Boone MD [facility] BOLA DIGITAL DIAGNOSTIC UNILATERAL LEFTOrdered By: Alvaro Chang on 02-22-2023 Interpretation and review of laboratory results Abnormal [facility] Work Phone: [facility] Work Phone: [facility] BOLA DIGITAL DIAGNOSTIC UNILATERAL LEFTon 02-22-2023 Group of 4 small calcifications within the central left breast seen on the MLO projection are being classified as a probably benign finding given additional calcifications scattered elsewhere within the left breast. Current examination should serve as a baseline to assess for future changes. Recommend short interval follow-up left breast mammogram in 6 months. BIRADS: BIRADS - CATEGORY 3 Probably Benign Findings. A short interval follow-up left breast mammogram is recommended in 6 months. OVERALL ASSESSMENT - PROBABLY BENIGN. A letter of notification will be sent to the patient regarding the results. [facility] EXAMINATION: DIAGNOSTIC DIGITAL LEFT BREAST MAMMOGRAM WITH TOMOSYNTHESIS, 02/22/2023 12:48 pm TECHNIQUE: Diagnostic mammography of the left breast was performed with tomosynthesis. 2D standard and 3D tomosynthesis combination imaging performed through the left breast. Computer aided detection was utilized in the interpretation of this exam. Views: 90 degree lateral and spot compression magnification MLO COMPARISON: 14 February 2023, 11 Dec 2020 HISTORY: ORDERING SYSTEM PROVIDED HISTORY: Abnormal mammogram of left breast FINDINGS: Density: The left breast is heterogeneously dense, which may obscure small masses. The left breast central calcifications appear to be relatively punctate on the MLO magnification view. However, they are relatively faint and there are no corresponding group of calcifications appreciated on the 90 degree lateral or craniocaudal projections. There are other scattered punctate and some larger dystrophic calcifications seen within the left breast. No underlying masses or architectural distortion. [facility] Radiology Study observation (narrative) [facility] DEXA BONE DENSITY AXIAL SKEL ETONon 02-14-2023 Normal bone mineral density by WHO criteria. RECOMMENDATIONS: 1. All patients should optimize their calcium and vitamin D intake. 2. Consider FDA-approved medical therapies in postmenopausal women and men aged 50 years and older, based on the following: - A hip or vertebral (clinical or morphometric) fracture - T-score less than or equal to -2.5 at the femoral neck or spine after appropriate evaluation to exclude secondary causes - Low bone density (T-score between -1.0 and -2.5 at the femoral neck or spine) and a 10-year probability of a hip fracture greater than or equal to 3% or a 10-year probability of a major osteoporosis-related fracture greater than or equal to 20% based on FRAX calculation. - Clinician judgment and/or patient preferences may indicate treatment for people with 10-year fracture probabilities above or below these levels - Further guidance on treatment can be found at the National Osteoporosis Foundation's website bonesource.org. 3. Patients with diagnosis of osteoporosis or at high risk for fracture should have regular bone mineral density tests. For patients eligible for Medicare, routine testing is allowed once every 2 years. The testing frequency can be increased to one year for patients who have rapidly progressing disease, those who are receiving or discontinuing medical therapy to restore bone mass or have additional risk factors. Template code: [id number] [facility] EXAMINATION: BONE DENSITOMETRY 02/14/2023 10:51 am TECHNIQUE: A bone density dual x-ray absorptiometry (DXA) scan was performed of the lumbar spine and left hip on a Melon system. COMPARISON: 11/08/2013 HISTORY: ORDERING SYSTEM PROVIDED HISTORY: Asymptomatic menopause TECHNOLOGIST PROVIDED HISTORY: Screening Gender: F Age: 72 y/o FINDINGS: LUMBAR SPINE: L1-L4 BMD: 1.153 g/cm2 T-score: -0.2 Z-score: 1.4 There has been a DECREASE of 4.0% in the bone mineral density of the lumbar spine since the prior exam date listed above. LEFT TOTAL HIP: BMD: 0.919 g/cm2 T-score: -0.7 Z-score: 0.9 LEFT FEMORAL NECK: BMD: 0.966 g/cm2 T-score: -0.5 Z-score: 1.3 There has been a DECREASE of 14.4% in the bone mineral density of the total hip since the prior exam date listed above. FRAX: Not Indicated. Matti Jerome DO - 02/14/2023 EXAMINATION: BONE DENSITOMETRY 02/14/2023 10:51 am TECHNIQUE: A bone density dual x-ray absorptiometry (DXA) scan was performed of the lumbar spine and left hip on a Melon system. COMPARISON: 11/08/2013 HISTORY: ORDERING SYSTEM PROVIDED HISTORY: Asymptomatic menopause TECHNOLOGIST PROVIDED HISTORY: Screening Gender: F Age: 72 y/o FINDINGS: LUMBAR SPINE: L1-L4 BMD: 1.153 g/cm2 T-score: -0.2 Z-score: 1.4 There has been a DECREASE of 4.0% in the bone mineral density of the lumbar spine since the prior exam date listed above. LEFT TOTAL HIP: BMD: 0.919 g/cm2 T-score: -0.7 Z-score: 0.9 LEFT FEMORAL NECK: BMD: 0.966 g/cm2 T-score: -0.5 Z-score: 1.3 There has been a DECREASE of 14.4% in the bone mineral density of the total hip since the prior exam date listed above. FRAX: Not Indicated. IMPRESSION: Normal bone mineral density by WHO criteria. RECOMMENDATIONS: 1. All patients should optimize their calcium and vitamin D intake. 2. Consider FDA-approved medical therapies in postmenopausal women and men aged 50 years and older, based on the following: - A hip or vertebral (clinical or morphometric) fracture - T-score less than or equal to -2.5 at the femoral neck or spine after appropriate evaluation to exclude secondary causes - Low bone density (T-score between -1.0 and -2.5 at the femoral neck or spine) and a 10-year probability of a hip fracture greater than or equal to 3% or a 10-year probability of a major osteoporosis-related fracture greater than or equal to 20% based on FRAX calculation. - Clinician judgment and/or patient preferences may indicate treatment for people with 10-year fracture probabilities above or below these levels - Further guidance on treatment can be found at the National Osteoporosis Foundation's website bonesource.org. 3. Patients with diagnosis of osteoporosis or at high risk for fracture should have regular bone mineral density tests. For patients eligible for Medicare, routine testing is allowed once every 2 years. The testing frequency can be increased to one year for patients who have rapidly progressing disease, those who are receiving or discontinuing medical therapy to restore bone mass or have additional risk factors. Template code: [id number] [employer] [email or web address] Radiology Study observation (narrative) [employer] [email or web address] DEXA BONE DENSITY AXIAL SKEL ETONOrdered By: Matti Olivera on 02-14-2023 [employer] Work Phone: Microscopic Urinalysison Bacteria LM Ql (Urine sed) 1+ Abnormal None [employer] Epithelial cells LM.HPF (Urine sed) [#/Area] 0 TO 2 [employer] Interpretation and review of laboratory results Abnormal [employer] Mucus Ql (Urine sed) TRACE Abnormal None [employer] RBC LM.HPF (Urine sed) [#/Area] 5 TO 10 [employer] WBC LM.HPF (Urine sed) [#/Area] 20 TO 50 [employer] [facility]ENTERIDINCU [facility] [employer] [facility]ENTERIDINCU [facility] Urinalysis with Reflex to Cu ltureon 01-06-2023 Bilirubin Ql (U) Negative NEGATIVE [facility] [employer]X Clarity (U) Clear Clear [employer] [email or web address] Color (U) [place] Abnormal Yellow [employer] [email or web address] Glucose Test strip (U) [Mass/Vol] Negative NEGATIVE [employer] Hemoglobin Auto test strip Ql (U) 1+ Abnormal NEGATIVE [employer] [email or web address] Interpretation and review of laboratory results Abnormal [email or web address] Ketones (U) [Mass/Vol] Negative NEGATIVE [facility] Leukocyte esterase Test strip Ql (U) MODERATE Abnormal NEGATIVE [facility] [employer] [facility] Nitrite Ql (U) Positive Abnormal NEGATIVE [facility] HEALTH pH (U) 7.0 [pH] 5.0 - 9.0 [facility] Protein (U) [Mass/Vol] 1+ Abnormal NEGATIVE [facility] Specific gravity (U) [Rel density] Low 1.010 - 1.020 [facility] Urobilinogen Qn (U) ELEVATED Abnormal Normal [email or web address] KENIA BOLA DIGITAL SCREEN BILA TERALOrdered By: Krystin Schaeffer on 12-11-2020 No evidence of malignancy. Advise annual screening mammography. BREAST DENSITY SUMMARY C: The breasts are heterogeneously dense which may obscure small masses. BI-RADS 2 BIRADS: BIRADS - CATEGORY 2 Benign Findings. Normal interval follow-up is recommended in 12 months. OVERALL ASSESSMENT - BENIGN A letter of notification will be sent to the patient regarding the results. [employer] recommends annual mammograms for women 40 years and older. [employer] Phone: EXAMINATION: SCREENING DIGITAL BILATERAL MAMMOGRAM WITH TOMOSYNTHESIS, 12/11/2020 TECHNIQUE: Screening mammography was performed with tomosynthesis including MLO and CC views of the bilateral breasts. Computer aided detection was used for the interpretation of this exam. COMPARISON: 05 October 2019; 12 October 2016 HISTORY: Screening. Negative family history of breast cancer. 12 year history of hormonal replacement therapy. No prior breast interventions. FINDINGS: The breasts are heterogeneously dense which can obscure small masses. No skin thickening, nipple contour changes, malignant type microcalcifications, areas of architectural distortion, suspicious masses or significant interval changes are noted. Stable benign-appearing calcifications are noted in both breasts. [employer] Phone: Dev, julio cesar Incoming Radiant Results From [employer] - 12/11/2020 1:28 PM EDT EXAMINATION: SCREENING DIGITAL BILATERAL MAMMOGRAM WITH TOMOSYNTHESIS, 12/11/2020 TECHNIQUE: Screening mammography was performed with tomosynthesis including MLO and CC views of the bilateral breasts. Computer aided detection was used for the interpretation of this exam. COMPARISON: 05 October 2019; 12 October 2016 HISTORY: Screening. Negative family history of breast cancer. 12 year history of hormonal replacement therapy. No prior breast interventions. FINDINGS: The breasts are heterogeneously dense which can obscure small masses. No skin thickening, nipple contour changes, malignant type microcalcifications, areas of architectural distortion, suspicious masses or significant interval changes are noted. Stable benign-appearing calcifications are noted in both breasts. IMPRESSION: No evidence of malignancy. Advise annual screening mammography. BREAST DENSITY SUMMARY C: The breasts are heterogeneously dense which may obscure small masses. BI-RADS 2 BIRADS: BIRADS - CATEGORY 2 Benign Findings. Normal interval follow-up is recommended in 12 months. OVERALL ASSESSMENT - BENIGN A letter of notification will be sent to the patient regarding the results. The [employer] recommends annual mammograms for women 40 years and older. [employer] Work Phone: KENIA DIGITAL SCREEN W CAD DARWIN ATERALon 10-05-2019 No evidence of malignancy. Advise annual screening mammography. BREAST DENSITY SUMMARY C: The breasts are heterogeneously dense which may obscure small masses. BI-RADS 2 BIRADS: BIRADS - CATEGORY 2 Benign, no evidence of malignancy. Normal interval follow-up is recommended in 12 months. OVERALL ASSESSMENT - BENIGN A letter of notification will be sent to the patient regarding the results. The [employer] recommends annual mammograms for women 40 years and older. [employer] [place] EXAMINATION: BILATERAL DIGITAL SCREENING MAMMOGRAM, 10/05/2019 TECHNIQUE: CC and MLO views of the left and right breasts were obtained. Computer aided detection was utilized in the interpretation of this exam. 3D tomosynthesis images were obtained. COMPARISON: 12 October 2016; 08 November 2013 HISTORY: Screening. Negative family history of breast cancer. 8 year history of hormonal replacement therapy. No prior breast interventions. FINDINGS: The breasts are heterogeneously dense which can obscure small masses. No skin thickening, nipple contour changes, malignant type microcalcifications, areas of architectural distortion, or significant interval changes are noted. Scattered benign-appearing parenchymal calcifications are noted in both breasts. [employer] [place] [employer], Mhpn Incoming Radiant Results From [employer] - 10/05/2019 3:10 PM EST EXAMINATION: BILATERAL DIGITAL SCREENING MAMMOGRAM, 10/05/2019 TECHNIQUE: CC and MLO views of the left and right breasts were obtained. Computer aided detection was utilized in the interpretation of this exam. 3D tomosynthesis images were obtained. COMPARISON: 12 October 2016; 08 November 2013 HISTORY: Screening. Negative family history of breast cancer. 8 year history of hormonal replacement therapy. No prior breast interventions. FINDINGS: The breasts are heterogeneously dense which can obscure small masses. No skin thickening, nipple contour changes, malignant type microcalcifications, areas of architectural distortion, or significant interval changes are noted. Scattered benign-appearing parenchymal calcifications are noted in both breasts. IMPRESSION: No evidence of malignancy. Advise annual screening mammography. BREAST DENSITY SUMMARY C: The breasts are heterogeneously dense which may obscure small masses. BI-RADS 2 BIRADS: BIRADS - CATEGORY 2 Benign, no evidence of malignancy. Normal interval follow-up is recommended in 12 months. OVERALL ASSESSMENT - BENIGN A letter of notification will be sent to the patient regarding the results. The [employer] recommends annual mammograms for women 40 years and older. [place], [place] Lipid, Fastingon 04-19-2019 Cholesterol [Mass/Vol] 182 mg/dL <200 [place], [place] Comment on above: Cholesterol Guidelines: <200 Desirable 200-240 Borderline >240 Undesirable Cholesterol in HDL [Mass/Vol] 53 mg/dL >40 [place] Comment on above: HDL Guidelines: <40 Undesirable 40-59 Borderline >59 Desirable Cholesterol in LDL [Mass/Vol] 116 mg/dL 0 - 130 mg/dL [place] Comment on above: LDL Guidelines: <100 Desirable 100-129 Near to/above Desirable 130-159 Borderline >159 Undesirable Direct (measured) LDL and calculated LDL are not interchangeable tests. Cholesterol in VLDL [Mass/Vol] NOT REPORTED 1 - 30 mg/dL [place] Cholesterol.total/Cho lesterol in HDL [Mass ratio] 3.4 {ratio} <5 [place] Triglyceride, Fasting 67 mg/dL <150 [place], [place] Comment on above: Triglyceride Guidelines: <150 Desirable 150-199 Borderline 200-499 High >499 Very high Based on AHA Guidelines for fasting triglyceride, May 2012. Urinalysis with Microscopico n 03-26-2019 Amorphous, UA NOT REPORTED None [facility], [place] Bacteria, UA NOT REPORTED None [place], [place] Bilirubin Urine Negative NEGATIVE [facility], [place] Casts UA NOT REPORTED /LPF [place], [place] Color, UA YELLOW YELLOW [place] Crystals UA NOT REPORTED None /HPF [facility], [place] Epithelial Cells UA 0 TO 2 [place] Glucose, Ur Negative NEGATIVE [place] Interpretation and review of laboratory results Abnormal [place] Ketones Ql (U) Negative NEGATIVE [place], [place] Leukocyte esterase Test strip Ql (U) Negative NEGATIVE [place] Mucus, UA NOT REPORTED None [place], [place] Nitrite, Urine Negative NEGATIVE [place], [place] Other Observations UA NOT REPORTED NOT REQ. M [place], [place] pH, UA 5.0 [place] Protein (U) [Mass/Vol] Negative NEGATIVE [place] RBC (U) [#/Vol] None [facility], [place] Renal Epithelial, Urine NOT REPORTED 0 /HPF [place] Specific [place], UA <1.005 [place], [place] Trichomonas, UA NOT REPORTED None [place], [place] Turbidity UA CLEAR CLEAR [place], [place] Urinalysis Comments NOT REPORTED [place], [place] Urine Hgb Negative NEGATIVE [place] Urobilinogen, Urine Normal Normal [place] WBC, UA 0 TO 2 [place] Yeast, UA NOT REPORTED None [place], [place] - [place] Vital Signs Date Time Vital Sign Value Performing Clinician Faci lity 03-24-2024 14:36-0400 Body height 162.6 cm Qamar MARIN [facility] 03-24-2024 14:36-0400 Body mass index (BMI) [Ratio] 23.69 kg/m2 Qamar MARIN [facility] 03-24-2024 14:36-0400 Body temperature 97.7 [degF] Qamar Ray MD [facility] 03-24-2024 14:36-0400 Body weight 62.6 kg Qamar Whiting MD [facility] 03-24-2024 14:36-0400 Diastolic blood pressure 64 mm[Hg] Qamar Whiting MD [facility] 03-24-2024 14:36-0400 Heart rate 65 /min Qamar Whiting MD [facility] 03-24-2024 14:36-0400 SaO2% (BldA) [Mass fraction] 100 % Qamar Whiting MD [facility] 03-24-2024 14:36-0400 Systolic blood pressure 113 mm[Hg] Qamar [place] MD [facility] Encounters Encounter Date Encounter Type Care Provider Facility Start: 03-24-2024 End: 03-24-2024 Emergency department patient visit Qamar [place] MD [facility] ED Comment on above: Acute cystitis witho ut hematuria (Primary Dx) Start: 03-07-2024 End: 03-09[facility] Start: 02-08-2024 End: 02-08-2024 ambulatory Ty [place] MD Facility:[facility] Start: 01-09-2024 End: 01-11-2024 ambulatory KRYSTIN SCHAEFFER [facility] Start: 12-14-2023 End: 12-14-2023 ambulatory JOCELYN Hinds [facility] Start: 12-13-2023 End: 12-13-2023 Subsequent hospital visit by physician Krystin Schaeffer [employer] Work Phone: [facility] Laboratory Comment on above: Flatulence, eructati on and gas pain Start: 12-13-2023 End: 12-13-2023 ambulatory JOCELYN SARAH [facility] Start: 12-13-2023 Encounter for other preprocedural examination [facility] Start: 09-07-2023 End: 09-07-2023 ambulatory Shree Pa MD Facility:[facility] Start: 02-22-2023 End: 02-24-2023 Subsequent hospital visit by physician [facility] Comment on above: Abnormal mammogram o f left breast Start: 02-14-2023 End: 02-16-2023 Subsequent hospital visit by physician [facility] Dexa [facility] Mammography Comment on above: Asymptomatic menopau se Start: 01-06-2023 End: 01-06-2023 Subsequent hospital visit by physician Krystin Schaeffer IMPORT DISPATCHER - [employer]OCK SH[employer]PER Work Phone: [facility] Laboratory Start: 12-11-2020 End: 12-13-2020 Subsequent hospital visit by physician [facility] Mammography Room At [facility] Mammography Comment on above: Encounter for screen ing mammogram for malignant neoplasm of breast Start: 06-17-2020 End: 06-17-2020 Subsequent hospital visit by physician [facility] Covid Screening Schedule [facility] Covid Screening Comment on above: Exposure to COVID-19 virus; Fatigue, unspecified type Start: 10-05-2019 End: 10-07-2019 Subsequent hospital visit by physician [facility] Mammography Room At [facility] Mammography Comment on above: Other screening mamm ogram Start: 04-19-2019 End: 04-19-2019 Subsequent hospital visit by physician Troy Garsia [facility] Laboratory Comment on above: Screening for hyperl ipidemia Start: 03-26-2019 End: 03-26-2019 Subsequent hospital visit by physician Troy Garsia [facility] Laboratory Comment on above: Urinary tract infect ion with hematuria, site unspecified Procedures Date Procedure Procedure Detail Performing Clinician Start: 03-24-2024 Urnls dip stick/tabl et reagent auto microscopy Qamar Whiting MD Start: 02-08-2024 Colonoscopy Qamar Ridley Start: 12-13-2023 Assay of gammaglobul in iga igd igg igm each Jocelyn Sarah IMPORT DISPATCHER - STOCK SHIPPER Work Phone: Start: 02-22-2023 Diagnostic mammograp hy computer-aided detcj uni Krystin Schaeffer IMPORT DISPATCHER - STOCK SHIPPER Work Phone: Start: 02-14-2023 Dxa bone density bree dy 1/> sites axial skel Krystin Schaeffer IMPORT DISPATCHER - STOCK SHIPPER Work Phone: Start: 01-06-2023 Urinalysis microscopic only Gabrielle Jenkins IMPORT DISPATCHER - STOCK SHIPPER Work Phone: Start: 01-06-2023 Urnls dip stick/tabl et rgnt auto w/o microscopy Gabrielle Jenkins IMPORT DISPATCHER - STOCK SHIPPER Work Phone: Start: 12-11-2020 Screening mammograph y bi 2-view breast inc cad Krystin Schaeffer IMPORT DISPATCHER - STOCK SHIPPER Work Phone: Start: 10-05-2019 Screening digital br east tomosynthesis bi Troy Garsia Work Phone: Start: 04-19-2019 Lipid panel Troy lopes Work Phone: Start: 03-26-2019 Urnls dip stick/tabl et reagent auto microscopy Troy Garsia Work Phone: Start: 09-17-2013 Colonoscopy Krystin stokes IMPORT DISPATCHER - STOCK SHIPPER Work Phone: Plan of Treatment Date Care Activity Detail Author Start: 02-07-2029 Screening for malignant neoplasm of colon [facility] Start: 08-25-2028 Lipid panel Lipids [facility] Start: 08-23-2027 Lipid panel Lipids [facility] Start: 03-06-2025 Depression Monitoring Depression Monitoring [facility] Start: 02-22-2025 Screening for malignant neoplasm of breast Breast cancer screen [facility] Start: 02-14-2025 Screening for malignant neoplasm of breast Breast cancer screen [facility] Start: 08-28-2024 End: 08-28-2024 Patient encounter procedure 08/28/2024 10:30 AM EST Of fice Visit Ty Warren MD [address] [place] [address] [place] [phone] Krystin Schaeffer, IMPORT DISPATCHER - STOCK SHIPPER [address] [place] [address], [address] [place] [address] ralph Warren MD Comment on above: ralph Start: 08-25-2024 Annual Wellness Visit (Medicare) Annual Wellness Visit (Medicare) [facility] Start: 06-29-2024 Depression Monitoring Depression Monitoring [facility] Start: 06-06-2024 End: 06-06-2024 Admission to same day surgery center 06/06/2024 12:10 PM EDT - 06/06/2024 12:[address] [facility] OR [address] [place], [place] [id number] Liliana Hare MD [address] [place] [id number] COLORECTAL CANCER SCREENING, NOT HIGH RISK [facility] OR Comment on above: COLORECTAL CANCER SCREENING, NOT HIGH RI SK Start: 06-06-2024 End: 06-06-2024 Colon ca scrn not hi rsk ind COLORECTAL CANCER SCREENI NG, NOT HIGH RISK Screening for colon cancer 06/06/2024 12:10 PM EDT [facility] Start: 06-06-2024 Subsequent hospital visit by physician 06/06/2024 12:10 PM EDT Hospital Encounter [facility] OR [address] [place], [place] [phone] Liliana Hare MD [address] [place] [address] [id number] [facility] OR Start: 06-06-2024 End: 06-06-2024 Admission to same day surgery center 06/06/2024 10:30 AM EDT - 06/06/2024 11:[address] [facility] OR [address] [place], [place] [phone] Liliana Hare MD [address] [place] [id number] COLORECTAL CANCER SCREENING, NOT HIGH RISK [facility] OR Comment on above: COLORECTAL CANCER SCREENING, NOT HIGH RI SK Start: 06-06-2024 End: 06-06-2024 Colon ca scrn not hi rsk ind COLORECTAL CANCER SCREENI NG, NOT HIGH RISK Screening for colon cancer 06/06/2024 10:30 AM T [facility] Start: 06-06-2024 End: 06-06-2024 Esophagogastroduodenoscopy transoral diagnostic ESOPHAGOGASTRODUODENOSCOPY Screening for colon cancer 06/06/2024 10:30 AM EDT [facility] Start: 06-06-2024 Subsequent hospital visit by physician 06/06/2024 10:30 AM EDT Hospital Encounter [facility] OR [address] [id number] Liliana Hare MD [address] [place], [place] [id number] [facility] OR Start: 04-19-2024 Lipid panel Lipid screen [place], [place] Start: 04-19-2024 Lipid screen Lipid screen [place], [place] Start: 03-08-2024 Influenza vaccination [facility] Start: 01-07-2024 Depression Monitoring Depression Monitoring [facility] Start: 10-12-2023 Depression Monitoring Depression Monitoring [facility] Start: 09-17-2023 Colon cancer screen colonoscopy Colon cancer screen colonoscopy [place], [place] Start: 09-17-2023 Screening for malignant neoplasm of colon [facility] Start: 08-25-2023 End: 08-25-2023 Patient encounter procedure 08/25/2023 Office Visit Internal Medicine Krystin Schaeffer, IMPORT DISPATCHER - STOCK SHIPPER [address] [facility], [facility] [place] [address] Ty Warren MD Start: 08-24-2023 Annual Wellness Visit (AWV) Annual Wellness Visit (AWV) [facility] Start: 04-08-2023 COVID-19 Vaccine ( season) COVID-19 Vaccine ( season) [facility] Start: 03-08-2023 Influenza vaccination Flu vaccine (#1) [facility] Start: 02-14-2023 End: 02-14-2023 Patient encounter procedure 02/14/2023 Appointment Radiology [facility] Mammography Start: 01-27-2023 DTaP/Tdap/Td vaccine (2 - Td or Tdap) DTaP/Tdap/Td vaccine (2 - Td or Tdap) [facility] Comment on above: Postponed from 06/19/2013 (Not Indicated ) Start: 12-11-2022 Screening for malignant neoplasm of breast Breast [facility] Start: 10-05-2021 Breast cancer screen Breast cancer screen [facility] Start: 10-05-2021 Screening for malignant neoplasm of breast Breast cancer screen [facility] Start: 09-17-2021 COVID-19 Vaccine (4 - Booster for Moderna series) COVID-19 Vaccine (4 - Booster for Moderna series) [facility] Start: 08-03-2021 End: 08-03-2021 Patient encounter procedure 08/03/2021 Office Visit Internal Medicine Krystin Schaeffer APRN - STOCK SHIPPER [address] [facility], [facility] [place] [address] [facility] Start: 07-29-2021 Annual Wellness Visit (AWV) Annual Wellness Visit (AWV) [facility] [employer] Work Phone: Start: 07-28-2021 Influenza vaccination Flu vaccine (Season Ended) [facility] Work Phone: Comment on above: Postponed from 04/08/2021 (Patient Refus ed) Start: 10-29-2020 COVID-19 Vaccine (2 - Moderna 2-dose series) COVID-19 Vaccine (2 - Moderna 2-dose series) [facility] Phone: Start: 07-28-2020 End: 07-28-2020 Office Visit 07/28/2020 Office Visit Internal Medicine Krystin Schaeffer APRN - STOCK SHIPPER [address] [facility], [facility] [place] [address] [facility] Start: 06-25-2020 End: 06-25-2020 Office Visit 06/25/2020 Office Visit Internal Medicine Troy Garsia MD [address] 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[employer] Start: 03-01-2020 Pneumococcal 65+ years Vaccine (1 of 2 - PCV13) Pneumococcal 65+ years Vaccine (1 of 2 - PCV13) [place] Comment on above: Postponed from 2013 (Insurance / F inancial) Start: 02-28-2020 Diabetes screen Diabetes screen [place], [place] Comment on above: Postponed from 1988 (Not Indicated ) Start: 02-28-2020 Shingles Vaccine (1 of 2) Shingles Vaccine (1 of 2) [place], [place] Comment on above: Postponed from 1998 (Unavailable) Start: 11-02-2019 Lipid screen Lipid screen [place], [place] Start: 06-20-2019 End: 06-20-2019 Office Visit 06/20/2019 Office Visit Internal Medicine Troy Garsia MD [address] [place] [phone] Troy Gasria MD Start: 04-08-2019 Influenza vaccination Flu vaccine (#1) [place] Start: 01-03-2019 Annual Wellness Visit (AWV) Annual Wellness Visit (AWV) [place] Start: 10-12-2018 Breast cancer screen Breast cancer screen [place], [place] Start: 06-19-2013 DTaP/Tdap/Td vaccine (2 - Td or Tdap) DTaP/Tdap/Td vaccine (2 - Td or Tdap) [facility] Start: 2011 Annual Wellness Visit (AWV) Annual Wellness Visit (AWV) [place], [place] Start: 2008 Respiratory Syncytial Virus (RSV) or age 60 yrs+ (1 - 1-dose 60+ series) Respiratory Syncytial Virus (RSV) or age 60 yrs+ (1 - 1-dose 60+ series) [facility] Start: 1998 Shingles Vaccine (1 of 2) Shingles Vaccine (1 of 2) [place], [place] Start: 03-09-1994 DTaP/Tdap/Td vaccine (1 - Tdap) DTaP/Tdap/Td vaccine (1 - Tdap) [place] Start: 1993 Screening for malignant neoplasm of colon [facility] Start: 1967 DTaP/Tdap/Td vaccine (1 - Tdap) DTaP/Tdap/Td vaccine (1 - Tdap) [place] Start: 1959 DTaP/Tdap/Td vaccine (1 - Tdap) DTaP/Tdap/Td vaccine (1 - Tdap) [place] Celiac Disease Panel Celiac Dise ase Panel Lab Routine Flatulence, eructation and gas pain 12/13/2023 3:23 PM EDT [facility] Work Phone: End: 06-17-2020 COVID-19 Ambulatory COVID-19 Ambulatory Lab Routine Exposure To Covid-19 Virus Fatigue, unspecified type 1 Occurrences starting 06/17/2020 until 06/17/2020 [place], [place] Comment on above: 1 Occurrences starting 06/17/2020 until 06/17/2020 COVID-19 Ambulatory COVID-19 Amb ulatory Lab Routine Exposure to COVID-19 virus Fatigue, unspecified type 06/17/2020 9:53 AM EST [place], [place] End: 01-06-2023 Culture, Urine [facility] Work Phone: Comment on above: Once for 1 Occurrences starting 01/07/20 until 01/06/2023 End: 03-24-2024 Culture, Urine [facility] Comment on above: One Time for 1 Occurrences starting 03/08 until 03/24/2024 Immunizations Immunization Date Immunization Notes Care Provider Griselda ferrera 06-21-2022 Influenza, FLUZONE ( age 65 y+), High Dose, 0.7mL Krystin Schaeffer IMPORT DISPATCHER - STOCK SHIPPER Work Phone: [facility] Work Phone: 11-11-2021 zoster vaccine recombinant Krystin Schaeffer IMPORT DISPATCHER - STOCK SHIPPER Work Phone: [facility] Work Phone: 09-01-2021 zoster vaccine recombinant Krystin Schaeffer IMPORT DISPATCHER - STOCK SHIPPER Work Phone: [facility] Work Phone: 10-29-2020 COVID-19, MODERNA BL UE border, Primary or Immunocompromised, (age 12y+), IM, 100 mcg/0.5mL Krystin Schaeffer IMPORT DISPATCHER - STOCK SHIPPER Work Phone: [facility] 10-01-2020 COVID-19, MODERNA BL UE border, Primary or Immunocompromised, (age 12y+), IM, 100 mcg/0.5mL Krystin Schaeffer IMPORT DISPATCHER - STOCK SHIPPER Work Phone: [facility] Work Phone: 07-28-2020 pneumococcal polysaccharide vaccine, 23 valent [facility] 06-20-2019 pneumococcal conjuga te vaccine, 13 valent [facility] 06-19-2003 tetanus toxoid, redu randy diphtheria toxoid, and acellular pertussis vaccine, adsorbed Krystin Schaeffer IMPORT DISPATCHER - STOCK SHIPPER Work Phone: [facility] Work Phone: 06-08-1996 influenza virus vacc ine, unspecified formulation [facility] 03-08-1994 Td, unspecified formulation [facility]- [place], [place] Payers Date Payer Category Payer Private Health Insurance [id number] 2022 Private Health Insurance 2016 Unknown [employer]IC[employer] SUPP xxxxxxxxxx 2016-Present [phone] [address] [address] [place] [address] xxxxxxxxxx [id number] 2016 Unknown [employer] MEDIC[employer] SUPP [id number] 2016-Present [phone] [address] [address] [place] [address] [id number] 2014 Medicare MEDICARE MEDICAR E PART A AND B xxxxxxxxxxx 2014-Present [phone] [address] [address] [place] [address] xxxxxxxxxxx [id number] 2013 Medicare [id number] 2013 Medicare 1948 Unknown [id number] 1948 Unknown [id number] 1948 Unknown [id number] 1948 Unknown [id number] 1948 Unknown [id number] 1948 Unknown [id number] 1948 Unknown [id number] 1948 Unknown [id number] 1948 Unknown [id number] 1948 Unknown [id number] 1948 Unknown [id number] Self-pay Social History Date Type Detail Facility Start: 03-02-2019 End: 08-23-2022 Tobacco smoking status NHIS Never smoker [facility] Start: 03-02-2019 End: 03-06-2024 Alcohol intake Not Currently [employer] [place] Start: 1950 Sex Assigned At Not on file [employer] [place], [place] Start: 06-20-2019 End: 03-24-2024 Alcohol intake Ex-drinker (finding) [facility] Start: 06-20-2019 End: 08-23-2022 Tobacco use and exposure Never used [employer] [place], [place] Exposure to SARS-CoV -2 (event) Not sure [employer] Start: 08-23-2022 History SDOH Alcohol Std Drinks 0 [facility] Work Phone: Start: 08-23-2022 History SDOH Social Connections Phone 5 [facility] Work Phone: Start: 08-23-2022 History SDOH Social Connections Get Together 3 [facility] Work Phone: Start: 08-23-2022 History SDOH Social Connections Membership 1 [facility] Work Phone: Start: 08-23-2022 History SDOH Social Connections Meetings 2 [facility] Work Phone: Start: 08-23-2022 End: 03-06-2024 History of Social function [employer] Within the last year , have you been afraid of your partner or ex-partner? No [facility] Do you belong to any clubs or organizations such as yarsani groups, unions, fraternal or athletic groups, or school groups? Yes [facility] Are you now , , , , never or living with a partner? [facility] Frequency of Alcohol Consumption Not on file [facility] Do you feel stress - tense, restless, nervous, or anxious, or unable to sleep at night because your mind is troubled all the time - these days [OSQ] Not at all [facility] (I/We) worried wheth er (my/our) food would run out before (I/we) got money to buy more. Never true [facility] Hospital Discharge instructions 03-24-2024 Discharge InstructionsAttachments Note Date & Type Note Facility 03-24-2024 Hospital Discharg e instructions Qamar Whiting MD - 03/24/2024 3:00 PM EDT Take your antibiotic as prescribed. You may also take the Pyridium as directed for urinary symptom relief. Return to the ED for fever, abdominal pain, back or flank pain, difficulty urinating or any other concerns. The following attachments cannot be sent through Care Everywhere.UTI (Urinary Tract Infection): Female (Hebrew)documented in this encounter [facility] Evaluation note Note Date & Type Note Facility Evaluation note Diagnosis Encounter for screening mammogram for malignant neoplasm of breast Other screening mammogram documented in this encounter [employer] Phone: Evaluation note Note Date & Type Note Facility Evaluation note Diagnosis Asymptomatic menopause documented in this encounter [facility] Evaluation note Note Date & Type Note Facility Evaluation note Diagnosis Abnormal mammogram of left breast documented in this encounter [facility] Evaluation note Note Date & Type Note Facility Evaluation note Diagnosis Flatulence, eructation and gas pain Flatulence, eructation, and gas pain Screening for colon cancer Special screening for malignant neoplasms, colon documented in this encounter [facility] Evaluation note Note Date & Type Note Facility Evaluation note Diagnosis Acute cystitis without hematuria- Primary Acute cystitis Screening for colon cancer Special screening for malignant neoplasms, colon documented in this encounter [facility] Assessments Diagnosis Screening for hyperlipidemia Screening for lipoid disorders Diagnosis Other screening mammogram Diagnosis Exposure to COVID-19 virus Fatigue, unspecified type Diagnosis Urinary tract infection with hematuria, site unspecified Advance Directives No Advanced Directives Records FoundDocuments on File Type Date Recorded Patient Image Scientist Expl anation Advance Directives and Living Will Power of Biological Aide Documents on File Type Date Recorded Patient Image Scientist Expl anation Advance Directives and Living Will Power of Biological Aide Documents on File Type Date Recorded Patient Image Scientist Expl anation ACP-Advance Directive ACP-Power of Biological Aide Documents on File Type Date Recorded Patient Image Scientist Expl anation ACP-Advance Directive ACP-Power of Biological Aide Reason for Referral Status Reason Specialty Diagnoses / Procedures Referre d By Contact Referred To Contact Closed Radiology Diagnoses Other screening mammogram Procedures KENIA DIGITAL SCREEN W CAD BILATERAL HC MAMMO SCREENING INCL CAD IF Troy Forrest MD [address] [place] [address] [place] [phone] Summary Purpose Family History No Family History Records FoundNo Family History Records Found Additional Source Comments Reason for Visit (unrecogniz ed section and content) Status Reason Specialty Diagnoses / Procedures Referre d By Contact Referred To Contact Closed Radiology Diagnoses Other screening mammogram Procedures KENIA DIGITAL SCREEN W CAD BILATERAL HC MAMMO SCREENING INCL CAD IF Troy Forrest MD [address] [place] [address] [place] [phone] Status Reason Specialty Diagnoses / Procedures Referre d By Contact Referred To Contact Closed Radiology Diagnoses Encounter for screening mammogram for malignant neoplasm of breast Procedures KENIA BOLA DIGITAL SCREEN BILATERAL KENIA DIGITAL SCREEN W OR WO CAD BILATERAL Krystin Schaeffer APRN - STOCK SHIPPER [address] [place] [address], [facility] [place] [address] Specialty Diagnoses / Procedures Referred By Katie camargo Referred To Contact Radiology Diagnoses Asymptomatic menopause Procedures DEXA BONE DENSITY AXIAL SKELETON DEXA BONE DENSITY 2 SITES Krystin Schaeffer APRN - STOCK SHIPPER [address] [facility], [facility] [place] [address] Referral ID Status Reason Start Date Expiration Date Visits Re quested Visits Authorized [id number] Open 08/23/2022 08/23/2023 1 1 Specialty Diagnoses / Procedures Referred By Katie camargo Referred To Contact Radiology Diagnoses Abnormal mammogram of left breast Procedures KENIA BOLA DIGITAL DIAGNOSTIC UNILATERAL LEFT KENIA DIGITAL DIAGNOSTIC W OR WO CAD LEFT Krystin Schaeffer APRN - CNP [address] [facility], [place] [address] Referral ID Status Reason Start Date Expiration Date Visits Re quested Visits Authorized [id number] Closed 02/15/2023 02/15/2024 1 1 Reason Comments Urinary Frequency Dysuria Pt to ED from home w ith c/o urinary frequency and burning with urination.Onset of symptoms upon awakening this morning.Pt has a history of urinary tract infections.Urine sample obtained during triage. Care Teams (unrecognized sec tion and content) Pediatric Clinical Nurse Specialist Relationship Specialty Start Date End Date Krystin Schaeffer APRN - CNP PCP - General Nurse Practitioner Family 07/28/20 Pediatric Clinical Nurse Specialist Relationship Specialty Start Date End Date Krystin Schaeffer APRN - CNP PCP - General Nurse Practitioner Family 07/28/20 Pediatric Clinical Nurse Specialist Relationship Specialty Start Date End Date Krystin Schaeffer APRN - CNP PCP - General Nurse Practitioner Family 07/28/20 Pediatric Clinical Nurse Specialist Relationship Specialty Start Date End Date Krystin Schaeffer APRN - CNP PCP - General Nurse Practitioner Family 07/28/20 INFORMATION SOURCE (unrecogn ized section and content) DATE CREATED AUTHOR 02/09/2024 [facility] DATE CREATED AUTHOR AUTHOR'S JAGJIT ARREOLA 03/27/2024 Hodan bingham Ordered Prescriptions (unrec ognized section and content) Prescription Sig Dispensed Refills Start Date End Da te phenazopyridine (PYRIDIUM) 100 MG tablet Take 1 tablet by mouth 3 times daily as needed for Pain 6 tablet 03/24/2024 03/26/2024 nitrofurantoin, macrocrystal-monohydrate , (MACROBID) 100 MG capsule Take 1 capsule by mouth 2 times daily for 5 days 10 capsule 03/24/2024 03/29/2024 FOR RECORDS PERTAINING TO PATIENTS WHO ARE OR HAVE BEEN ENROLLED IN A CHEMICAL DEPENDENCY/SUBSTANCEABUSE PROGRAM, SOME INFORMATION MAY BE OMITTED. This clinical summary was aggregated from multiple sources. Caution should be exercised in using it in the provision of clinical care. This summary normalizes information from multiple sources, and as a consequence, information in this document may materially change the coding, format and clinical context of patient data. In addition, data may be omitted in some cases. CLINICAL DECISIONS SHOULD BE BASED ON THE PRIMARY CLINICAL RECORDS. [facility] [employer] [facility]. provides no warranty or guarantee of the accuracy or completeness of information in this document.
[2024-05-25 10:24] VITALS: BP 116/60; PULSE 70; O2SAT 98
== END 2024-05-25 11:33 | disposition home or self-care (01) ==
LOC: VC 10:14
PROVIDERS: PCP Radiology Diagnostic Radiology; Visit Provider Radiology Diagnostic Radiology
DX: I83.813 Varicose veins of bilateral lower extremities with pain (principal)
CPT/HCPCS: 36478

== ENCOUNTER 2024-06-01 09:43 | Outpatient (OUT) | payer MEDICARE, OTHER, SELFPAY ==
--- NOTE | 2024-06-01 07:36 | VEINCLINIC_ITS ---
Vital Signs 06/01/24 10:39 Height 5 ft 4 in Weight 64.4 kg BMI 24.4 Varicose Veins Patient in today for follow up ultrasound of left lower extremity following EVLT of left GSV completed on 05/25/24. Richmond Christensen MD personally performed the services described in this documentation, as scribed by Michelle Jeter RDMS in my presence and it is both accurate and complete. Michelle Christensen RDMS, am scribing for, and in the presence of, Dr. Amaris Palacios and in the presence of the patient. thigh: bilateral (symptoms left > right leg), knee: bilateral, calf: bilateral, ankle: bilateral and [place]: bilateral aching, cramping and dull 3 >20 years Worsened in recent months: Yes standing compression stockings, weight loss and exercise Reports muscle spasms of leg, fatigue, heaviness, limb pain and edema History of lower extremity trauma: No Superficial thrombophlebitis: No Family history of varicose veins: yes Has patient had previous lower extremity venous surgery: No Does patient have a history of : yes Does patient intend to have future pregnancies: no Has patient had lower extremity venous scan with relux testing: No Support hose used: Yes Problems walking or doing physical activity: Yes How does it affect you: patient often has to rest and elevate legs Do you walk much: Yes Do you stand much: Yes Review of Systems ROS Narrative Richmond Christensen MD personally performed the services described in this documentation, as scribed by Michelle Jeter RDMS in my presence and it is both accurate and complete. Michelle Christensen RDMS am scribing for, and in the presence of, Dr. Amaris Palacios and in the presence of the patient. Status of ROS 10 or more systems reviewed and unremark able except as noted in history and below Cardiovascular Reports: edema Neurological Reports: weakness in extremities [facility] Medical History (Updated 06/01/24 @ 07:37 by Michelle Jteer) Phlebitis and thrombophlebitis of superficial vessels of left lower extremity ?I80.02 - Phlebitis and thrombophlebitis of superficial vessels of left lower extremity (ICD-10) Plantar fascia syndrome ?M72.2 - Plantar fascial fibromatosis (ICD-10) Pain due to varicose veins of both lower extremities ?I83.813 - Varicose veins of bilateral lower extremities with pain (ICD-10) Surgical History (Updated 05/25/24 @ 13:24 by James Peguero) Status post laser ablation of incompetent vein ?Z98.890 - Other specified postprocedural states (ICD-10) H/O: hysterectomy ?Z90.710 - Acquired absence of both cervix and uterus (ICD-10) H/O skin graft ?Z94.5 - Skin transplant status (ICD-10) Family History (Updated 05/15/24 @ 14:01 by James Peguero) Mother Bipolar 1 disorder Other Family history of CHF (congestive heart failure) Family history of cancer Family history of diabetes mellitus Family history of hypertension Family history of myocardial infarction Pain due to varicose veins of both lower extremities Social History (Updated 05/15/24 @ 14:01 by James Peguero) Within the past year, how often did you have a drink containing alcohol: never Score interpretation: A score less than 3 is consistent with normal alcohol consumption. Smoking status: Never smoker Non-prescribed substance use: denies use Meds Home Medications and Allergies Allergies Allergy/AdvReac Type Severity Reaction Status Date / Time No Known Drug Allergies Allergy Verified 05/15/24 14:02 Exam Narrative Exam Narrative: Richmond Christensen MD personally performed the services described in this documentation, as scribed by Michelle Jeter RDMS in my presence and it is both accurate and complete. Michelle Christensen RDMS, am scribing for, and in the presence of, Dr. Amaris Palacios and in the presence of the patient. 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 Richmond Christensen MD personally performed the services described in this documentation, as scribed by Michelle Jeter RDMS in my presence and it is both accurate and complete. Michelle Christensen RDMS, am scribing for, and in the presence of, Dr. Amaris Palacios and in the presence of the patient. Assessment and Plan Assessment and Plan (1) Phlebitis and thrombophlebitis of superficial vessels of left lower extremity: Plan Patient will call when she is ready to return for EVLT of right GSV after getting her heart taken care of. IRichmond MD personally performed the services described in this documentation, as scribed by Michelle Jeter RDMS in my presence and it is both accurate and complete. Michelle Christensen RDMS, am scribing for, and in the presence of, Dr. Amaris Palacios and in the presence of the patient.
--- NOTE | 2024-06-01 10:03 | VEIN_ITS ---
Patient Name: DARIEL YADAV MR#: [id number] : 1950 Exam Date: 06/01/2024 Ordering Doctor: DR ROCCO LOMELI M.D. RADIOLOGY REPORT PROCEDURE: [facility] - OFFICE VISIT FOLLOW UP COMPARISON: None. PROGRESS NOTES: The patient reports improvement in leg symptoms. There has been interval reduction in varicosities. The patient has followed our recommendations to walk 20-30 minutes once or twice per day since the procedure. Physical exam demonstrates decrease in varicosities of the leg. Persistent varicosities are identified along the legs bilaterally. Review of the ultrasound performed the same day demonstrates occlusive thrombus extending throughout the treated vein(s), see separate report, consistent with a successful ablation. No thrombus extending into or beyond the saphenofemoral junction. The patient expressed a desire to proceed with treatment of remaining varicosities. The patient was informed that treatment was a process and would require several procedures/sessions. VEIN/[facility] Facility EST LMTD IMPRESSION: 1. Successful ablation of the left great saphenous vein(s). 2. Persistent varicose veins and lower extremity symptoms. PLAN: 1. Patient has been experiencing what is thought to be some cardiac issues and plans to undergo EKG evaluation and possibly stress testing. Patient would like to delay further vein treatment until after this is done. Patient will contact us when ready. Nurse notes, history and physical were reviewed and confirmed, see attached forms. The nurse was present throughout the physical exam and consultation Dictated by: Richmond Palacios M.D. on 06/01/2024 at 11:05 Approved by: Richmond Palacios M.D. on 06/01/2024 at 11:06
--- NOTE | 2024-06-01 10:03 | VEIN_ITS ---
Patient Name: DARIEL YADAV MR#: [id number] : 1950 Exam Date: 06/01/2024 Ordering Doctor: DR ROCCO LOMELI M.D. RADIOLOGY REPORT PROCEDURE: VC EXT VENOUS LT LIMITED COMPARISON: None. INDICATIONS: I80.02 - Phlebitis and thrombophlebitis of superficial veins left leg TECHNIQUE: Lower extremity perez scale and Duplex Doppler evaluation of the deep venous system from the inguinal ligament through the calf veins. FINDINGS: REGION: Left lower extremity. THROMBI: Negative for DVT. Heat induced thrombus in left GSV 1.3 cm from SFJ and extends to mid lower leg. COMPRESSIBILITY: Non-compressible segments corresponding to thrombus FLOW: Areas of no flow corresponding to thrombus OTHER: CONCLUSION: 1. Successful post ablation occlusion of left great saphenous vein. Dictated by: Richmond Palacios M.D. on 06/01/2024 at 11:03 Approved by: Richmond Palacios M.D. on 06/01/2024 at 11:05
[2024-06-01 10:39] VITALS: BMI 24.4
--- NOTE | 2024-06-01 10:42 | P.DS_ITS ---
Discharge Plan Discharge Disposition: Home, Self-Care Outpatient Diagnostics: VC Endovenous Ablation 1VeinRT (Routine) Timeframe: 3 Months Facility: [facility] - Location: [facility]in Center Ordered By: Richmond Palacios Plan of Treatment: EVLT of right GSV EVLT Tumescent Anesthesia: 500 mL 0.9% NS with 20 mL 1% Lidocaine and 10 mL 8.4% NAHCO3 Buffered Local Anesthesia: 10 mL of 1% Lidocaine Buffered Print Language: Georgian Discharge Date/Time: 06/01/24 10:43
== END 2024-06-01 10:43 | disposition home or self-care (01) ==
PROVIDERS: PCP Radiology Diagnostic Radiology; Visit Provider Radiology Diagnostic Radiology
DX: I80.02 Phlebitis and thrombophlebitis of superficial vessels of left lower extremity (principal)
CPT/HCPCS: 93971; G0463